=== PATIENT | female | born 1995 | race Caucasian/White ===

== ENCOUNTER 2025-04-16 02:42 | Outpatient (CLI) | payer OTHER, SELFPAY ==
--- OUTSIDE RECORDS SUMMARY | 2025-04-13 15:30 | XMS_ITS | Encounter Summary ---
Author Organization [facility] Address [facility] [address] [address] Care Team Providers Care Medicare Biller Name Role Phone Harleen Zepeda JULIETH Primary Care Provider [phone]- [phone] Reason for Visit * Reason Comments Routine Visit Encounter Details Date Type Department Care Team (Late st Contact Info) Description 04/13/2025 2:30 PM MDT ROUTINE [facility] [place] [address] [place] [address] Balaji Robles NP [address] [place] [address] Social History Tobacco Use Types Packs/Day Years Used Date Smoking Tobacco: Never Smokeless Tobacco: Never Alcohol Use Standard Drinks/Week Comments Not Currently 0 (1 standard drink = 0.6 oz pur e alcohol) ocassional Melrude Depression Scale Answer Date Recorded Melrude Depression Scale Total 21 04/13/2025 The thought of harming myself has occurred to me . 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 Not on file Not on file Not on file documented as of this encounter Last Filed Vital Signs Vital Sign Reading Time Taken Comments Blood Pressure 110/70 04/13/2025 2:28 PM MDT Pulse - - Temperature - - Respiratory Rate - - Oxygen Saturation - - Inhaled Oxygen Concentration - - Weight 85.5 kg (188 lb 6.4 oz) 04/13/2025 2:28 P M MDT Height - - Body Mass Index 32.36 01/07/2025 8:02 AM MDT documented in this encounter Plan of Treatment Upcoming Encounters Date Type Department Care Team (Late st Contact Info) Description 04/29/2025 11:15 AM MDT ROUTINE [address] [place] [address] Kendra Calles MD [address] [place] [address] [address] [place] [address] 06/29/2025 11:00 AM MDT Initial Visit [address] [place] [address] Kendra Calles MD [address] [place] [address] [address] [place] [address] Stacy Grant documented as of this encounter Procedures Procedure Name Priority Date/Time Associated Diagnosis Comments CHLAMYDIA/GC PANEL Routine 04/13/2025 3: 09 PM MDT Screening examination for STD (sexually transmitted disease) TRICHOMONAS GENPROBE Routine 04/13/2025 3:09 PM MDT Screening examination for STD (sexually transmitted disease) documented in this encounter Results * (ABNORMAL) Thyroid Stimulating Hormone (TSH) - Reflexive (04/13/2025 3:32 PM MDT) TSH 0.384(L) 0.470 - 4.680 mIU/L 04/13/2025 6:33 PM MDT [facility] Blood BLOOD SPECIMEN / Unknown Venipuncture / Unknown 04/13/2025 3:32 PM MDT 04/13/2025 3:32 PM MDT Narrative [facility] - 04/13/2025 6:33 PM MDT This test can be affected by high dose biotin supplements. It is recommended that patients abstain from the use of Biotin-containing medicinals for 24 hours prior to specimen collection if interference is or may be suspected. Balaji Robles LAB BLOOD ORDERABLES Final Resul t Performing Organization Address [facility] Co de Phone Number [facility] [address] [place] [address], [facility] [phone] * HIV 1/2 Antibody (04/13/2025 3:32 PM MDT) HIV 1/2 Antibody Quant 0.21 s/c 04/13/2025 7:45 PM MDT [facility] HIV1/2 Antibody Screen Negative Negative 04/13/2025 7:45 PM MDT [facility] Comment:Negative Result: HIV antigen and antibodies are not detected. If early infection is suspected, consider repeat testing in 4-6 weeks. Blood BLOOD SPECIMEN / Unknown Venipuncture / Unknown 04/13/2025 3:32 PM MDT 04/13/2025 3:32 PM MDT Balaji [facility] LAB BLOOD ORDERABLES Final Resul t Performing Organization Address [facility] de Phone Number [facility] [address] [place] [address], [facility] [phone] * Hepatitis B Surface Antigen (04/13/2025 3:32 PM MDT) Hepatitis B Surface Antigen Quant 0.09 S/CO 04/13/2025 6:33 PM MDT [facility] Comment:Negative Hepatitis B Surface Antigen Negative Negative 04/13/2025 6:33 PM MDT [facility] Comment:HBsAg results should be used and interepreted in the context of the overall clinical picture. A negative or false reactive test result does not exclude the possibility of exposure to or infection with hepatitis B virus. Levels of HBsAg may be undetectable both in early infection and late after infection. In rare cases HBsAg tests do not detect certain HBV mutant strains. Blood BLOOD SPECIMEN / Unknown Venipuncture / Unknown 04/13/2025 3:32 PM MDT 04/13/2025 3:32 PM MDT Balaji Robles ELECTRONICS ENGINEER LAB BLOOD ORDERABLES Final Resul t Performing Organization Address [facility] Co de Phone Number [facility] [address] [place], [place] [address], [facility] [phone] * Hepatitis C Virus Antibody (04/13/2025 3:32 PM MDT) Hepatitis C Virus Antibodies Quant 0.01 S/CO 04/13/2025 6:50 PM MDT [facility] Comment:Negative Hepatitis C Virus Antibodies Negative Negative 04/13/2025 6:50 PM MDT [facility] Comment:A negative test resu lt does not exclude the possibility of exposure to or infection with HCV. HCV Antibodies may be undetectable in some stages of the infection and in some clinical conditions. Blood BLOOD SPECIMEN / Unknown Venipuncture / Unknown 04/13/2025 3:32 PM MDT 04/13/2025 3:32 PM MDT Balaji Robles NP LAB BLOOD ORDERABLES Final Resul t Performing Organization Address [facility] de Phone Number [facility] [address] [place] [address], [facility] [phone] * Trichomonas Genprobe (04/13/2025 3:09 PM MDT) Trichomonas vaginalis Amplification Negative Negative 04/14/2025 2:39 PM MDT [facility] Swab VAGINAL STRUCTURE / Unknown 04/13/2025 3:09 PM MDT 04/13/2025 5:12 PM MDT Narrative [facility] - 04/14/2025 2:39 PM MDT Performed by amplified RNA us Balaji Robles ELECTRONICS ENGINEER BODY FLUIDS AND STOOLS ORDERABLE S Final Result Performing Organization Address City/[facility] Co de Phone Number [facility] [address] [place] [address] [phone] * Chlamydia/GC Panel (04/13/2025 3:09 PM MDT) Chlamydia trachomatis Amplification Negative Negative 04/13/2025 10:16 PM MDT [facility] Neisseria gonorrhoeae Amplification Negative Negative 04/13/2025 10:16 PM MDT [facility] Swab VAGINAL STRUCTURE / Unknown 04/13/2025 3:09 PM MDT 04/13/2025 5:12 PM MDT Narrative [facility] - 04/13/2025 10:16 PM MDT Performed by amplified RNA us Balaji Robles ELECTRONICS ENGINEER BODY FLUIDS AND STOOLS ORDERABLE S Final Result [facility] [address] [place] [address] [phone] documented in this encounter Visit Diagnoses Diagnosis Screening examination for STD (sexually transmitted disease)- Primary Screening examination for venereal disease Hypothyroidism, unspecified type Abnormal TSH Other abnormal clinical finding documented in this encounter Care Teams Medicare Biller Relationship Specialty Start Date End Date Harleen Zepeda FNP [address] [place] [facility] PCP - General Nurse Practitioner 06/23/24 documented as of this encounter
--- OUTSIDE RECORDS SUMMARY | 2025-04-13 16:30 | XMS_ITS | Encounter Summary ---
Author Organization [facility] Address [address], [place] [address] Care Team Providers Care Shake Table Operator Name Role Phone Harleen Zepeda JULIETH Primary Care Provider [phone]- [phone] Encounter Details Date Type Department Care Team (Late st Contact Info) Description 04/13/2025 3:30 PM MDT Lab Only [facility] Acute [facility] Lab [facility] [address] [address] Encounter for screening of mother (HC CODE); Screening examination for STD (sexually transmitted disease); Hypothyroidism, unspecified type Social History Tobacco Use Types Packs/Day Years Used Date Smoking Tobacco: Never Smokeless Tobacco: Never Alcohol Use Standard Drinks/Week Comments Not Currently 0 (1 standard drink = 0.6 oz pur e alcohol) ocassional Mcrae Depression Scale Answer Date Recorded Mcrae Depression Scale Total 21 04/13/2025 The thought [...] 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 [place] [address] Kendra Calles MD [address] [place] [address] [place] [address] Stacy Grant Scheduled Orders Name Type Priority Associated Diagnoses Orde r Schedule Antibody Screen Blood Bank Routine Encounter for screening of mother (HC CODE) Ordered: 04/13/2025 CBC No Auto Diff Lab Routine Encounter for screening of mother (HC CODE) Ordered: 04/13/2025 documented as of this encounter Procedures Procedure Name Priority Date/Time Associated Diagnosis Comments THYROID STIMULATING HORMONE REFLEXIVE Routine 04/13/2025 3:32 PM MDT Hypothyroidism, unspecified type RAPID PLASMA REAGIN ANTIBODY - SOUTH ONLY Routine 04/13/2025 3:32 PM MDT Encounter for screening of mother (HC CODE) HEPATITIS C VIRUS ANTIBODY Routine 04/13/2025 3:32 PM MDT Screening examination for STD (sexually transmitted disease) HIV 1/2 ANTIBODY Routine 04/13/2025 3:32 PM MDT Screening examination for STD (sexually transmitted disease) HEPATITIS B SURFACE ANTIGEN Routine 04/13/2025 3:32 PM MDT Screening examination for STD (sexually transmitted disease) T4 (THYROXINE) FREE Routine 04/13/2025 3 :32 PM MDT Hypothyroidism, unspecified type documented in this encounter Results * T4 Free (Thyroxine) (04/13/2025 3:32 PM MDT) Pathologist [facility] T4 Free 1.07 0.78 - 2.19 ng/dL 04/13/2025 6:58 PM MDT [facility] Blood BLOOD SPECIMEN / Unknown Venipuncture / Unknown 04/13/2025 3:32 PM MDT 04/13/2025 3:32 PM MDT Balaji Robles LAB BLOOD ORDERABLES Final Resul t Performing Organization Address City/[facility] Co de Phone Number [facility] [address] [place] [address], [facility] [phone] * (ABNORMAL) Thyroid Stimulating Hormone (TSH) - Reflexive (04/13/2025 3:32 PM MDT) Pathologist [facility] TSH 0.384(L) 0.470 - 4.680 mIU/L 04/13/2025 6:33 PM MDT [facility] Blood BLOOD SPECIMEN / Unknown Venipuncture / Unknown 04/13/2025 3:32 PM MDT 04/13/2025 3:32 PM MDT Narrative [facility] - 04/13/2025 6:33 PM MDT This test can be affected by high dose biotin supplements. It is recommended that patients abstain from the use of Biotin-containing medicinals for 24 hours prior to specimen collection if interference is or may be suspected. Balaji Robles NP LAB BLOOD ORDERABLES Final Resul t Performing Organization Address City/[facility] Co de Phone Number [facility] [address] [place], [place] [address] [phone] * HIV 1/2 Antibody (04/13/2025 3:32 PM MDT) Pathologist [facility] HIV 1/2 Antibody Quant 0.21 s/c 04/13/2025 7:45 PM MDT [facility] HIV1/2 Antibody Screen Negative Negative 04/13/2025 7:45 PM MDT [facility] Comment:Negative Result: HIV antigen and antibodies are not detected. If early infection is suspected, consider repeat testing in 4-6 weeks. Blood BLOOD SPECIMEN / Unknown Venipuncture / Unknown 04/13/2025 3:32 PM MDT 04/13/2025 3:32 PM MDT Balaji Robles LAB BLOOD ORDERABLES Final Resul t Performing Organization Address [facility] de Phone Number [facility] [address] [place], [place] [address], [facility] [phone] * Hepatitis B Surface Antigen (04/13/2025 3:32 PM MDT) Hepatitis B Surface Antigen Quant 0.09 S/CO 04/13/2025 6:33 PM MDT [facility] Comment:Negative Hepatitis B Surface Antigen Negative Negative 04/13/2025 6:33 PM MDT [facility] Comment:HBsAg results should be [...] MDT 04/13/2025 3:32 PM MDT Balaji Robles LAB BLOOD ORDERABLES Final Resul t Performing Organization Address [facility] Phone Number [facility] [address] [place], [place] [address], [facility] [phone] * Hepatitis C Virus Antibody (04/13/2025 3:32 PM MDT) Hepatitis C Virus Antibodies Quant 0.01 S/CO 04/13/2025 6:50 PM MDT [facility] Comment:Negative Hepatitis C Virus Antibodies Negative Negative 04/13/2025 6:50 PM MDT [facility] Comment:A negative test resu lt does not exclude the possibility of exposure to or infection with HCV. HCV Antibodies may be undetectable in some stages of the infection and in some clinical conditions. Blood BLOOD SPECIMEN / Unknown Venipuncture / Unknown 04/13/2025 3:32 PM MDT 04/13/2025 3:32 PM MDT us Balaji Robles NP LAB BLOOD ORDERABLES Final Resul t Performing Organization Address City/[facility]/ZIP Co de Phone Number [facility] [address] [place] [address] [address], [facility] [phone] * Rapid Plasma Reagin Antibody (RPR) - Inhouse Testing (04/13/2025 3:32 PM MDT) RPR Negative Negative 04/14/2025 11:32 AM MDT [facility] Blood BLOOD SPECIMEN / Unknown Venipuncture / Unknown 04/13/2025 3:32 PM MDT 04/13/2025 3:32 PM MDT us Kendra Calles MD LAB BLOOD ORDERABLES Fin al Result Performing Organization Address City/[facility] Co de Phone Number [facility] [address] [place], [place] [address], [facility] [phone] documented in this encounter Visit Diagnoses Diagnosis Encounter for screening of mother (HC CODE) Unspecified screening Screening examination for STD (sexually transmitted disease) Screening examination for venereal disease Hypothyroidism, unspecified type documented in this encounter Care Teams Shake Table Operator Relationship Specialty Start Date End Date Harleen Zepeda FNP [address] [place] [address] PCP - General Nurse Practitioner 06/23/24 documented as of this encounter
[2025-04-16] VITALS (39 sets, daily range): BP systolic 111–126; BP diastolic 56–83; PULSE 55–85; RESP 16; TEMP 36.6; O2SAT 93–100; BMI 32.8
--- OUTSIDE RECORDS SUMMARY | 2025-04-17 03:15 | XMS_ITS | Clinical Summary ---
Author Organization [facility] and [facility] Address [address] [place] [address] Care Team Providers Care Systems Integration Analyst Name Role Phone Harleen Zepeda JULIETH Primary Care Provider [phone] Allergies Active Allergy Reactions Criticality Noted Date Comments Adhesive Tape-Silicones BLISTERING Low 07/17/2019 Medications albuterol HFA 90 mcg/actuation inhaler Inhale 2 puffs into the lungs every 6 hours as needed for Acute Asthma Attack. 8.5 g 4 07/11/20 24 Active vit no.124/iron/folic ( VITAMIN PO) Take 1 tablet by mouth daily. Active cyanocobalamin, vitamin B-12, 1,000 mcg tablet Take 1 tablet by mouth daily. Active ondansetron (ZOFRAN-ODT) 4 mg disintegrating tablet Take 1 tablet by mouth daily as needed for Nausea or Vomiting for Excessive Vomiting in . Dissolve on top of the tongue. May use 1-2 tabs every 6 hours as needed 20 tablet 1 11/27/19 25 Active hydrOXYzine HCL (ATARAX) 50 mg tablet Take 1 tablet by mouth nightly at bedtime for anxiety. 30 tablet 4 12/26/19 25 Active dextroamphetamine -amphetamine (ADDERALL XR) 10 mg 24 hr capsule Take 1 capsule by mouth daily for Attention-Defici t Hyperactivity Disorder. 30 capsule 01/03/20 25 Active CALCIUM-VITAMIN D3 PO Take 3 tablets by mouth daily. 500mg each Active ferrous sulfate (IRON) 325 mg (65 mg iron) tablet Take 1 tablet by mouth every other day for iron deficiency anemia. 90 tablet 1 01/09/20 25 Active acetaminophen (TYLENOL) 500 mg tablet Take 2 tablets by mouth every 6 hours as needed for Pain for Pain. 30 tablet 01/09/20 25 Active senna-docusate (SENNA PLUS) 8.6-50 mg tablet Take 1 tablet by mouth 2 times daily as needed for constipation. 30 tablet 01/09/20 25 Active calcium citrate-vitamin D3 315 mg-6.25 mcg (250 unit) per tablet 2 tab, Oral, TID, # 540 tab, 3 Refill(s), Pharmacy: [id number], 163, 12/03/23 15:38:00 MDT, Height/Length Measured, cm, 91.9, 09/14/23 8:40:00 MST, Weight Dosing, kg 12/03/19 24 Active blood-glucose meter Kit kit Take 1 each as instructed as needed (QID and PRN) for . Test blood sugar fasting and after each meal 1 each 04/01/20 25 Active propranoloL (INDERAL) 10 mg tablet Take 1 tablet by mouth daily as needed (anxiety) for anxiety. 90 tablet 1 04/01/20 25 Active escitalopram oxalate (LEXAPRO) 10 mg tablet Take 1 tablet by mouth daily for Anxiety with Depression. 30 tablet 1 04/13/20 25 Active propranoloL (INDERAL) 10 mg tablet Take 1 tablet by mouth daily as needed (anxiety). 07/19/20 23 2024 Discontinu ed(D/Cs Rx at Pharm - Reorder) metoCLOPramide (REGLAN) 5 mg tablet Take 1 tablet by mouth 4 times daily (with meals and nightly) for Nausea. 120 tablet 12/08/19 25 2024 Discontinu ed(*Med Hx: Pt reports therapy complete - does not d/c Rx at pharmacy) Active Problems Problem Noted Date Diagnosed Date Subclinical hypothyroidism 03/06/2025 Overview (04/16/2025): TSH 0.409, T4 WNL on 02/05. TSH 0.196, T4, T3, TSI WNL on 03/02 TSH 0.384, T4 1.07 (WNL) on 04/13 Encounter for repeat ultraso und of pyelectasis in [place] , antepartum 02/25/2025 Overview (02/25/2025): Follow up at 32 weeks with US Benign cyst of breast, left 02/05/2025 Overview (02/05/2025): US done 05/2019 Eczema, dyshidrotic 02/05/2025 Left knee pain 02/05/2025 Chronic daily headache 02/05/2025 Chronic diarrhea 02/05/2025 Chronic post-traumatic stress disorder (PTSD) Gastroesophageal reflux disease 02/05/2025 Hyperlipidemia 02/05/2025 Left radial head fracture 02/05/2025 Need for rhogam due to Rh negative mother 2024 Obstructive sleep apnea 02/05/2025 Skin pruritus 02/05/2025 History of labor, current 01/16 Cervical cerclage suture present 01/21/2025 Anemia during in second trimester 12/17 Overview (03/19/2025): Hg 9.0 at NOB. Taking oral iron QOD. Plan repeat in 4-6 weeks Hg 9.7 on 03/02. IV iron ordered. Plan re-evaluation with PNII labs Rh negative state in antepartum period Overview (01/12/2025): Fetus Rh negative via [place]. Plan Rhogam at 28 wks and at delivery Prior loss in second trimester, antepa rtum 01/08/2025 Previous delivery affecting 0 01/05/2025 Overview (01/05/2025): Wants RLTCS History of prior with IUGR Overview (01/05/2025): Plan growth US at 32 and 36 weeks History of cerclage, currently 12/23/19 25 Overview (01/05/2025): Scheduled for cerclage placement 01/08/25 Mild intermittent asthma 12/16/2024 11/17/2024 Overview (01/05/2025): Recommended LDA- BMI >30, hx of IUGR, hx of delivery H/O gastric bypass 11/17/2024 Overview (01/21/2025): Avoid 1 hour glucola testing. Will plan for fingersticks QID. Assessment & Plan (12/16/2024 2:45 PM MDT): Continue vitamin patches. Elevated blood pressure affe cting in first trimester, antepartum 11/17/2024 Assessment & Plan (01/05/2025 6:28 AM MDT): BP WNL today. Baseline HTN labs collected Assessment & Plan (12/16/2024 2:44 PM MDT): BP wnl today Still plan on baseline pre-E labs with NOB visit Adult ADHD 06/23/2024 Overview (07/04/2024): Will change Vyvanse to Adderall. 20 mg Adderall in the morning, 10 mg in afternoon if needed. Assessment & Plan (07/04/2024 4:51 PM MDT): Generalized anxiety disorder 06/23/2024 Assessment & Plan (04/16/2025 1:30 PM MDT): >>ASSESSMENT AND PLAN FOR ANXIETY WRITTEN ON 01/05/2025 6:34 AM BY BALAJI ROBLES NP Discussed R/B/A's of adderall in . Pt states she may restart at 10 mg daily. Rx sent Agrees to see TC for mood management. Initial intake packet given PCOS (polycystic ovarian syndrome) 09/15/2016 Estimated Date of Delivery Comme nts Yes 07/14/2025 Based on last me nstrual period of 10/07/2024 (Within Days) Resolved Problems Problem Noted Date Diagnosed Date Resolved Date Iron deficiency anemia 03/06/202503/06 Overview (03/06/2025): Hg 9.7 on 03/02. Oral iron prescribed Cellulitis of right foot due to methicillin-resistant Staphylococcus aureus 02/05/2025 04/16/2025 COVID-19 02/05/2025 04/16/2025 Lab test positive for detect ion of COVID-19 virus 02/05/2025 04/16/2025 Vaginal bleeding in 02/05/2025 04/13/2025 History of section 02/05/2025 04/13/2025 14 weeks gestation of 01/08/2025 04/13/2025 Uncertain dates, antepartum, first trimester 04/13/2025 Assessment & Plan (12/16/2024 2:44 PM MDT): with inconclusive viability 11/17/2024 01/05/2025 Morbid obesity with BMI of 45.0-49.9, adult 08/06/2020 04/16/2025 Overview (02/05/2025): Problem added by Discern Expert Encounters Date Type Department Care Team Description 04/15/2025 Results Follow-Up [address] [place], [place] [address] Balaji Robles NP 04/13/2025 3:30 PM MDT Lab Only [facility] [place] [address] Encounter for screening of mother (HC CODE); Screening examination for STD (sexually transmitted disease); Hypothyroidism, unspecified type 04/13/2025 2:30 PM MDT ROUTINE [address] [place] [phone] Balaji Robles NP 04/13/[address] [place] [address] Balaji Robles NP 04/01/2025 11:15 AM MDT ROUTINE [address] [place] [id number] Kendra Calles MD 03/27/2025 11:30 AM MDT Treatment [facility] [address] [facility] [place] [address] Denae Laird, RN Anemia during in second trimester (HC CODE) (Primary Dx) 03/27/2025 Orders Only [facility] [address] [facility] [place] [address] Denae Laird, KISHORE 03/26/2025 Orders Only [facility] [address] [place] [address] [place] [address] Denae Laird, KISHORE 03/19/2025 Orders Only [address] [place] [phone] Balaji Robles NP 03/13/2025 1:20 PM MDT Lab Only [facility] [address] [place] [address] [place] [address] Encounter for screening of mother (HC CODE); screening encounter (HC CODE) 03/06/2025 Orders Only [facility] [address] [place] [address] [place] [address] Marnie Arias screening encounter (HC CODE) 03/06/2025 Orders Only [address] [place] [phone] Balaji Robles NP Anemia during in second trimester (HC CODE) (Primary Dx) 03/06/2025 Orders Only [facility] [address] [place] [address] [place] [phone] Marnie Arias screening encounter (HC CODE) 03/06/2025 Orders Only [address] [place] [address] Balaji Rolbes NP screening encounter (HC CODE) (Primary Dx) 03/02/2025 3:30 PM MDT Lab Only [facility] [address] [place] [address] screening encounter (HC CODE); BMI 33.0-33.9,adult 03/02/2025 Lab Requisition [facility] [address] [place] [phone] Berry Schroeder MD Encounter for other specified special examinations; Encounter for other specified special examinations 02/25/2025 10:30 AM MDT ROUTINE [address] [place] [address] Kendra Calles MD 02/25/2025 10:00 AM MDT Ancillary Procedure [address] [place] [address] 20 weeks gestation of (HC CODE); Encounter for screening of mother (HC CODE) 02/06/[address] [place] [address] Balaji Robles NP 02/06/2025 Results Follow-Up [address] [place] [address] Balaji Robles NP screening encounter (HC CODE) (Primary Dx) 02/05/2025 10:45 AM MDT ROUTINE [address] [place] [address] Balaji Robles NP 02/04/[address] [place] [address] Kendra Calles MD 01/30/[address] [place] [address] Glenis Trujillo PA-C 01/21/2025 11:45 AM MDT ROUTINE [facility] [address] [place] [address] Kendra Calles MD 01/21/2025 11:15 AM MDT Ancillary Procedure [facility] [address] [facility] [address] [place] [address] Cervical cerclage suture present in second trimester (HC CODE); 16 weeks gestation of (HC CODE) 01/15/[address] [place] [phone] [facility] [address] [place] [address] Asked, Nopcp from Last 3 Months Immunizations Immunization Administration Dates Next Due Hep B, adult 04/12/2023,03/15/2023 Influenza, injectable, MDCK, preservative free (6 mos+) 06/27/2021,07/05/2020 Influenza, seasonal, injecta ble, preservative free 07/04/2024 MMR 03/15/2023,08/06/2020 Tdap 05/16/2021,06/09/2020,07/18/2019 varicella (VARIVAX) 04/12/2023,03/15/2023 Family History Medical History Relation Comments Diabetes Father High blood pressure Father Heart disease Maternal Grandfather Hypertension Maternal Grandfather Hypertension Maternal Grandmother ADHD Mother Depression Mother Relation Status Comments Father Maternal Grandfather Maternal Grandmother Mother Social History Tobacco Use Types Packs/Day Years Used Date Smoking Tobacco: Never Smokeless Tobacco: Never Tobacco Cessation:Counseling Given: Not Answered Alcohol Use Standard Drinks/Week Comments Not Currently 0 (1 standard drink = 0.6 oz pur e alcohol) ocassional [place] Depression Scale Answer Date Recorded [place] Depression Scale Total 21 04/13/2025 The thought [...] 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 Not on file Not on file Last Filed Vital Signs Vital Sign Reading Time Taken Comments Blood Pressure 110/70 04/13/2025 2:28 PM MDT Pulse 73 03/27/2025 2:07 PM MDT Temperature 36.4 C (97.5 F) 03/27/2025 2:07 PM MDT Respiratory Rate 18 03/27/2025 2:07 PM MDT Oxygen Saturation 98% 03/27/2025 2:07 PM MDT Inhaled Oxygen Concentration - - Weight 85.5 kg (188 lb 6.4 oz) 04/13/2025 2:28 P M MDT Height 162.5 cm (5' 3.98 ) 01/07/2025 8:02 AM MD T Body Mass Index 32.36 01/07/2025 8:02 AM MDT Plan of Treatment Upcoming Encounters Date Type Department Care Team (Late st Contact Info) Description 04/29/2025 11:15 AM MDT ROUTINE [facility]'[address] [facility] [address] [place] [phone] Kendra Calles MD [address] [place] [address] [address] [facility] [address] [place] [address] 06/29/2025 11:00 AM MDT Initial Visit [facility]'[place] [id number] [place] [phone] Kendra Calles MD [address] [place] [address] [address] [place] [address] St[facility] Health Maintenance Due Date Last Done Comments Medical Durable Power of Att orney (MDPOA) 2013 Pneumonia Vaccine (1 of 2 - PCV) 2014 SARS-COV2 (COVID-19) Vaccine ( - season) 2024 Pre-Diabetes A1C Monitoring 11/05/2025 11/05/2024 Thyroid Surveillance 04/13/2026 04/13/2025, 03/13/2025, 03/02/2025, Additional history exists Cervical Cancer Screening (P ap Smear) 09/22/2027 09/22/2024 Tdap/Td Vaccine (4 - Td or Tdap) 05/16/2031 05/16/2021, 06/09/2020, 07/18/2019 Hepatitis B Vaccine Adult Completed 2022, 04/12/2023, 03/15/2023 HIV Screening (Ages 15-65/One-time) Completed 04/13/2025, 03/02/2025, 02/05/2025 Hepatitis C Antibody Screening Completed 0 04/13/2025, 03/02/2025, 02/05/2025 Syphilis Screening Completed 04/13/2025, 0 03/02/2025, 02/05/2025 Procedures Procedure Name Priority Date/Time Associated Diagnosis Comments T4 (THYROXINE) FREE Routine 04/13/2025 3 :32 PM MDT Hypothyroidism, unspecified type THYROID STIMULATING HORMONE REFLEXIVE Routine 04/13/2025 3:32 PM MDT Hypothyroidism, unspecified type HIV 1/2 ANTIBODY Routine 04/13/2025 3:32 PM MDT Screening examination for STD (sexually transmitted disease) HEPATITIS B SURFACE ANTIGEN Routine 04/13/2025 3:32 PM MDT Screening examination for STD (sexually transmitted disease) HEPATITIS C VIRUS ANTIBODY Routine 04/13/2025 3:32 PM MDT Screening examination for STD (sexually transmitted disease) RAPID PLASMA REAGIN ANTIBODY - SOUTH ONLY Routine 04/13/2025 3:32 PM MDT Encounter for screening of mother (HC CODE) TRICHOMONAS GENPROBE Routine 04/13/2025 3:09 PM MDT Screening examination for STD (sexually transmitted disease) CHLAMYDIA/GC PANEL Routine 04/13/2025 3: 09 PM MDT Screening examination for STD (sexually transmitted disease) THYROID STIMULATING IMMUNOGLOB Routine 03/13/2025 1:18 PM MDT screening encounter (HC CODE) TSH ULTRASENSITIVE Routine 03/13/2025 1: 18 PM MDT Encounter for screening of mother (HC CODE) TYPE AND SCREEN (GEL) Routine 03/02/2025 3:26 PM MDT screening encounter (HC CODE) FREE T3 Routine 03/02/2025 3:26 PM MDT screening encounter (HC CODE) T4 (THYROXINE) FREE Routine 03/02/2025 3 :26 PM MDT screening encounter (HC CODE) LAB USE ONLY - SMEAR REVIEW Routine 03/02/2025 3:26 PM MDT screening encounter (HC CODE) CBC WITH MANUAL DIFF IF AUTO FAILS (PERFORMABLE) Routine 03/02/2025 3:26 PM MDT screening encounter (HC CODE) TSH ULTRASENSITIVE Routine 03/02/2025 3: 26 PM MDT BMI 33.0-33.9,adult screening encounter (HC CODE) HIV 1/2 ANTIBODY Routine 03/02/2025 3:26 PM MDT screening encounter (HC CODE) COMPREHENSIVE METABOLIC PANEL Routine 03/02/2025 3:26 PM MDT BMI 33.0-33.9,adult screening encounter (HC CODE) RAPID PLASMA REAGIN ANTIBODY - SOUTH ONLY Routine 03/02/2025 3:26 PM MDT screening encounter (HC CODE) HEPATITIS B SURFACE ANTIGEN Routine 03/02/2025 3:26 PM MDT screening encounter (HC CODE) RUBELLA IGG ANTIBODY Routine 03/02/2025 3:26 PM MDT screening encounter (HC CODE) CBC WITH MANUAL DIFF IF AUTO FAILS (ORDERABLE) Routine 03/02/2025 3:26 PM MDT screening encounter (HC CODE) HEPATITIS C VIRUS ANTIBODY Routine 03/02/2025 3:26 PM MDT screening encounter (HC CODE) VARICELLA ZOSTER IGG ANTIBODY Routine 03/02/2025 3:26 PM MDT screening encounter (HC CODE) QFT-TB PLUS (CLIENT INCUBATED) Routine 03/02/2025 3:24 PM MDT Encounter for other specified special examinations Encounter for other specified special examinations GEN OBGYN ULTRASOUND Routine 02/25/2025 10:55 AM MDT 20 weeks gestation of (HC CODE) Encounter for screening of mother (HC CODE) T4 (THYROXINE) FREE Add-on 02/05/2025 1 1:25 AM MDT screening encounter (HC CODE) VARICELLA ZOSTER IGG ANTIBODY Routine 02/05/2025 11:25 AM MDT screening encounter (HC CODE) HEPATITIS C VIRUS ANTIBODY Routine 02/05/2025 11:25 AM MDT screening encounter (HC CODE) RUBELLA IGG ANTIBODY Routine 02/05/2025 11:25 AM MDT screening encounter (HC CODE) HEPATITIS B SURFACE ANTIGEN Routine 02/05/2025 11:25 AM MDT screening encounter (HC CODE) RAPID PLASMA REAGIN ANTIBODY - SOUTH ONLY Routine 02/05/2025 11:25 AM MDT screening encounter (HC CODE) HIV 1/2 ANTIBODY Routine 02/05/2025 11:2 5 AM MDT screening encounter (HC CODE) TSH ULTRASENSITIVE Routine 02/05/2025 11 :25 AM MDT screening encounter (HC CODE) GEN OBGYN ULTRASOUND Routine 01/21/2025 11:44 AM MDT Cervical cerclage suture present in second trimester (HC CODE) 16 weeks gestation of (HC CODE) HEMOGLOBIN A1C Routine 11/05/2024 5:51 PM MST Encounter for well woman exam with routine gynecological exam History of Hernando-en-Y gastric bypass BKR FIELD REPORTER CYTOLOGY Routine 09/22/2024 2:39 PM MST Encounter for well woman exam with routine gynecological exam from Last 3 Months or Most Recently Relevant to Health Maintenance Results * (ABNORMAL) Thyroid Stimulating Hormone (TSH) - Reflexive (04/13/2025 3:32 PM MDT) TSH 0.384(L) 0.470 - 4.680 mIU/L 04/13/2025 6:33 PM MDT [facility] Blood BLOOD SPECIMEN / Unknown Venipuncture / Unknown 04/13/2025 3:32 PM MDT 04/13/2025 3:32 PM MDT Narrative [facility] - 04/13/2025 6:33 PM MDT This test can be affected by high dose biotin supplements. It is recommended that patients abstain from the use of Biotin-containing medicinals for 24 hours prior to specimen collection if interference is or may be suspected. us Balaji Robles [employer] LAB BLOOD ORDERABLES Final Resul t [facility] [address] [place] [address], [facility] [phone] * Rapid Plasma Reagin Antibody (RPR) - Inhouse Testing (04/13/2025 3:32 PM MDT) RPR Negative Negative 04/14/2025 11:32 AM MDT [facility] Blood BLOOD SPECIMEN / Unknown Venipuncture / Unknown 04/13/2025 3:32 PM MDT 04/13/2025 3:32 PM MDT us Kendra Calles MD LAB BLOOD ORDERABLES Fin al Result Performing Organization Address City/[facility]/ZIP Co de Phone Number [facility] [address] [place] [address], [facility] [phone] * Hepatitis C Virus Antibody (04/13/2025 3:32 PM MDT) Hepatitis C Virus Antibodies Quant 0.01 S/CO 04/13/2025 6:50 PM MDT [facility] Comment:Negative Hepatitis C Virus Antibodies Negative Negative 04/13/2025 6:50 PM MDT [facility] Comment:A negative test resu lt does not exclude the possibility of exposure to or infection with HCV. HCV Antibodies may be undetectable in some stages of the infection and in some clinical conditions. Blood BLOOD SPECIMEN / Unknown Venipuncture / Unknown 04/13/2025 3:32 PM MDT 04/13/2025 3:32 PM MDT us Balaji Robles NP LAB BLOOD ORDERABLES Final Resul t Performing Organization Address [facility] Co de Phone Number [facility] [address] [place], [place] [address], [facility] [phone] * HIV 1/2 Antibody (04/13/2025 3:32 PM MDT) HIV 1/2 Antibody Quant 0.21 s/c 04/13/2025 7:45 PM MDT [facility] HIV1/2 Antibody Screen Negative Negative 04/13/2025 7:45 PM MDT [facility] Comment:Negative Result: HIV antigen and antibodies are not detected. If early infection is suspected, consider repeat testing in 4-6 weeks. Blood BLOOD SPECIMEN / Unknown Venipuncture / Unknown 04/13/2025 3:32 PM MDT 04/13/2025 3:32 PM MDT us Balaji Robles NP LAB BLOOD ORDERABLES Final Resul t [facility] [address] [place], [place] [address], [facility] [phone] * Hepatitis B Surface Antigen (04/13/2025 3:32 PM MDT) [facility] Hepatitis B Surface Antigen Quant 0.09 S/CO 04/13/2025 6:33 PM MDT [facility] Comment:Negative Hepatitis B Surface Antigen Negative Negative 04/13/2025 6:33 PM MDT [facility] Comment:HBsAg results should be used and [...] Address City/[facility]/ZIP Co de Phone Number [facility] [address] [place], [place] [address], [facility] [phone] * T4 Free (Thyroxine) (04/13/2025 3:32 PM MDT) [facility] T4 Free 1.07 0.78 - 2.19 ng/dL 04/13/2025 6:58 PM MDT [facility] Blood BLOOD SPECIMEN / Unknown Venipuncture / Unknown 04/13/2025 3:32 PM MDT 04/13/2025 3:32 PM MDT Balaji Robles [employer] LAB BLOOD ORDERABLES Final Resul t [facility] [address] [place], [place] [address], [facility] [phone] * Chlamydia/GC Panel (04/13/2025 3:09 PM MDT) [facility] Chlamydia trachomatis Amplification Negative Negative 04/13/2025 10:16 PM MDT [facility] Neisseria gonorrhoeae Amplification Negative Negative 04/13/2025 10:16 PM MDT [facility] Swab VAGINAL STRUCTURE / Unknown 04/13/2025 3:09 PM MDT 04/13/2025 5:12 PM MDT Narrative [facility] - 04/13/2025 10:16 PM MDT Performed by amplified RNA Balaji Robles [employer]ER BODY FLUIDS AND STOOLS ORDERABLE S Final Result Performing Organization Address City/[facility]/ZIP Co de Phone Number [facility] [address] [place], [place] [address], [facility] [phone] * Trichomonas Genprobe (04/13/2025 3:09 PM MDT) Trichomonas vaginalis Amplification Negative Negative 04/14/2025 2:39 PM MDT [facility] Swab VAGINAL STRUCTURE / Unknown 04/13/2025 3:09 PM MDT 04/13/2025 5:12 PM MDT Narrative [facility] - 04/14/2025 2:39 PM MDT Performed by amplified RNA Balaji Robles [employer] BODY FLUIDS AND STOOLS ORDERABLE S Final Result Performing Organization Address [facility] Co de Phone Number [facility] [address] [place], [place] [address], [facility] [phone] * Thyroid-Stimulating Immunoglob - [facility] (03/13/2025 1:18 PM MDT) Thyroid Stimulating Immunoglobulin <0.10 0.00 - 0.55 IU/L 03/18/2025 5:37 AM MDT [facility] Blood BLOOD SPECIMEN / Unknown Venipuncture / Unknown 03/13/2025 1:18 PM MDT 03/13/2025 1:19 PM MDT Narrative [facility] - 03/18/2025 5:37 AM MDT Performed at: [facility] [employer] [address] [place] [address] [id number] Cost And Sales Record Supervisor: Jose Miguel Mohamud MD, Phone: [phone] Balaji Robles [employer] LAB BLOOD ORDERABLES Final Resul t Performing Organization Address City/[facility]/ZIP Co de Phone Number [facility] [address] [place] [address] * (ABNORMAL) TSH (03/13/2025 1:18 PM MDT) Pathologist [facility] TSH 0.196(L) 0.470 - 4.680 mIU/L 03/13/2025 2:34 PM MDT [facility] Blood BLOOD SPECIMEN / Unknown Venipuncture / Unknown 03/13/2025 1:18 PM MDT 03/13/2025 1:19 PM MDT Narrative [facility] - 03/13/2025 2:34 PM MDT This test can be affected by high dose biotin supplements. It is recommended that patients abstain from the use of Biotin-containing medicinals for 24 hours prior to specimen collection if interference is or may be suspected. Balaji Robles NP LAB BLOOD ORDERABLES Final Resul t Performing Organization Address [facility] Co de Phone Number [facility] [address] [place] [address] [address], [facility] [phone] * Rapid Plasma Reagin Antibody (03/02/2025 3:26 PM MDT) Pathologist [facility] RPR Negative Negative 03/03/2025 12:24 PM MDT [facility] Blood BLOOD SPECIMEN / Unknown Venipuncture / Unknown 03/02/2025 3:26 PM MDT 03/02/2025 3:27 PM MDT Balaji Robles [employer] LAB BLOOD ORDERABLES Final Resul t Performing Organization Address City/[facility] Co de Phone Number [facility] [address] [place] [address] [address], [facility] [phone] * (ABNORMAL) Smear Review (03/02/2025 3:26 PM MDT) [facility] RBC and Platelet Morphology Evaluated 03/02/2025 3:57 PM MDT [facility] Anisocytosis 1+(A) Not Present 03/02/2025 3:57 PM MET [facility] Microcytes 1+(A) Not Present 03/02/2025 3:57 PM MET [facility] Hypochromasia 1+(A) Not Present 03/02/2025 3:57 PM [facility] Blood BLOOD SPECIMEN / Unknown Venipuncture / Unknown 03/02/2025 3:26 PM MDT 03/02/2025 3:27 PM MDT us Balaji Robles NP LAB BLOOD ORDERABLES Final Resul t [facility] [address] [address], [facility] [phone] * (ABNORMAL) CBC with Auto Differential (03/02/2025 3:26 PM MDT) White Blood Cell Count 11.0(H) 3.6 - 10.8 10*9/L 03/02/2025 3:57 PM [facility] Red Blood Cell Count 4.38 4.20 - 5.40 10*12/L 03/02/2025 3:57 PM [facility] Hemoglobin 9.7(L) 12.0 - 16.0 g/dL 03/02/2025 3:57 PM [facility] Hematocrit 32.3(L) 37.0 - 47.0 % 03/02/2025 3:57 PM [facility] Mean Corpuscular Volume 73.7(L) 81.0 - 99.0 fL 03/02/2025 3:57 PM [facility] Mean Corpuscular Hemoglobin 22.1(L) 26.0 - 33.0 pg 03/02/2025 3:57 PM [facility] Mean Corpuscular Hemoglobin Concentration 30.0(L) 32.0 - 36.0 g/dL 03/02/2025 3:57 PM [facility] Platelet Count 324 130 - 400 10*9/L 03/02/2025 3:57 PM [facility] Red Cell Distribution Width CV 17.6(H) 11.0 - 14.0 % 03/02/2025 3:57 PM [facility] Mean Platelet Volume 10.3 6.4 - 10.4 fL 03/02/2025 3:57 PM MET [facility] Neutrophil Percent 74.8 % 2024 3:57 PM [facility] Lymphocyte Percent 16.0 % 2024 3:57 PM [facility] Monocytes Percent 7.2 % 025 3:57 PM [facility] Eosinophils Percent 1.2 % 03/02/2025 3:57 PM MET [facility] Basophils Percent 0.3 % 025 3:57 PM [facility] Immature Granulocytes Percent 0.5 0 - 0.5 % 03/02/2025 3:57 PM [facility] Neutrophils Absolute 8.3(H) 1.5 - 7.7 10*9/L 03/02/2025 3:57 PM [facility] Lymphocyte Absolute 1.8 1.2 - 4.8 10*9/L 03/02/2025 3:57 PM [facility] Monocytes Absolute 0.8 0.1 - 1.3 10*9/L 03/02/2025 3:57 PM [facility] Eosinophils Absolute 0.1 0.0 - 0.5 10*9/L 03/02/2025 3:57 PM [facility] Basophils Absolute 0.0 0.0 - 0.2 10*9/L 03/02/2025 3:57 PM [facility] Immature Granulocytes Absolute 0.1 0.0 - 0.1 10*9/L 03/02/2025 3:57 PM [facility] NRBC Absolute 0.00 10*9/L 03/02/2025 3:57 PM [facility] Blood BLOOD SPECIMEN / Unknown Venipuncture / Unknown 03/02/2025 3:26 PM MDT 03/02/2025 3:27 PM MDT us Balaji Robles NP LAB BLOOD ORDERABLES Final Resul t [facility] [address] [address], [facility] [phone] * Type and Screen (03/02/2025 3:26 PM MDT) Specimen Expiration 03/05/2025 23:59 03/02/2025 4:31 PM MDT [facility] ABO/Rh Typing O NEGATIVE 03/02/2025 4:31 PM MDT [facility] Antibody Screen Gel NEGATIVE 03/02/2025 4:31 PM MDT [facility] History Check PREVIOUS HISTORY 03/02/2025 4:31 PM MDT [facility] Blood BLOOD SPECIMEN / Unknown Venipuncture / Unknown 03/02/2025 3:26 PM MDT 03/02/2025 3:27 PM MDT Balaji Robles NP BLOOD BANK TEST ORDERABLES Edite d Result - Final Performing Organization Address City/[facility]/ZIP Co de Phone Number [facility] [address] [address], [facility] [phone] * Hepatitis C Virus Antibody (03/02/2025 3:26 PM MDT) Pathologist [facility] Hepatitis C Virus Antibodies Quant 0.01 S/CO 03/02/2025 4:52 PM MDT [facility] Comment:Negative Hepatitis C Virus Antibodies Negative Negative 03/02/2025 4:52 PM MDT [facility] Comment:A negative test resu lt does not exclude the possibility of exposure to or infection with HCV. HCV Antibodies may be undetectable in some stages of the infection and in some clinical conditions. Blood BLOOD SPECIMEN / Unknown Venipuncture / Unknown 03/02/2025 3:26 PM MDT 03/02/2025 3:27 PM MDT us Balaji Robles NP LAB BLOOD ORDERABLES Final Resul t [facility] [address] [address], [facility] [phone] * Rubella IgG Antibody (03/02/2025 3:26 PM MDT) Rubella IgG Antibody Quantitative 10.70 IU/mL 03/05/2025 2:52 PM MDT [facility] Comment:Low Positive Rubella IgG Antibody Interp Low Positive Low Positive, Positive 03/05/2025 2:52 PM MDT [facility] Blood BLOOD SPECIMEN / Unknown Venipuncture / Unknown 03/02/2025 3:26 PM MDT 03/02/2025 3:27 PM MDT Narrative [facility] - 03/05/2025 2:52 PM MDT Reference Range for Rubella: Negative: <=9.99 IU/mL Low Positive: 10.1-14.9 IU/mL Positive: >=15.0 IU/mL A Positive or Low Positive result suggests immunity to Rubella infection. A negative result suggests no immunity to Rubella. Balaji Robles NP LAB BLOOD ORDERABLES Final Resul t Performing Organization Address City/[facility] Co de Phone Number [facility] [address] [address], [facility] [phone] * HIV 1/2 Antibody (03/02/2025 3:26 PM MDT) HIV 1/2 Antibody Quant 0.20 s/c 03/02/2025 5:43 PM MDT [facility] HIV1/2 Antibody Screen Negative Negative 03/02/2025 5:43 PM MDT [facility] Comment:Negative Result: HIV antigen and antibodies are not detected. If early infection is suspected, consider repeat testing in 4-6 weeks. Blood BLOOD SPECIMEN / Unknown Venipuncture / Unknown 03/02/2025 3:26 PM MDT 03/02/2025 3:27 PM MDT Balaji Robles NP LAB BLOOD ORDERABLES Final Resul t [facility] [address] [address], [facility] [phone] * Hepatitis B Surface Antigen (03/02/2025 3:26 PM MDT) Hepatitis B Surface Antigen Quant 0.08 S/CO 03/02/2025 4:36 PM MDT [facility] Comment:Negative Hepatitis B Surface Antigen Negative Negative 03/02/2025 4:36 PM MDT [facility] Comment:HBsAg results should be used and [...] BLOOD SPECIMEN / Unknown Venipuncture / Unknown 03/02/2025 3:26 PM MDT 03/02/2025 3:27 PM MDT Balaji Robles LAB BLOOD ORDERABLES Final Resul t Performing Organization Address City/[facility] Co de Phone Number [facility] [address] [place] [address], [facility] [phone] * Varicella Zoster IgG Antibodies (03/02/2025 3:26 PM MDT) Varicella Zoster IgG Quant 2.69 03/02/2025 4:36 PM MET [facility] Comment: Result Index Values Negative <1.0 Positive >=1.0 Varicella Zoster IgG Positive Positive 03/02/2025 4:36 PM MDT [facility] Blood BLOOD SPECIMEN / Unknown Venipuncture / Unknown 03/02/2025 3:26 PM MDT 03/02/2025 3:27 PM MDT Balaji Robles LAB BLOOD ORDERABLES Final Resul t Performing Organization Address City/[facility] Co de Phone Number [facility] [address] [place] [address], [facility] [phone] * T3 Free (03/02/2025 3:26 PM MDT) Free T3 3.5 2.8 - 5.3 pg/mL 03/06/2025 4:28 PM MDT [facility] Blood BLOOD SPECIMEN / Unknown Venipuncture / Unknown 03/02/2025 3:26 PM MDT 03/06/2025 1:50 PM MDT Balaji Robles [employer] LAB BLOOD ORDERABLES Final Resul t Performing Organization Address City/[facility]/ZIP Co de Phone Number [facility] [address], [place] [address], [facility] [phone] * (ABNORMAL) TSH (03/02/2025 3:26 PM MDT) Pathologist [facility] TSH 0.196(L) 0.470 - 4.680 mIU/L 03/02/2025 4:36 PM MDT [facility] Blood BLOOD SPECIMEN / Unknown Venipuncture / Unknown 03/02/2025 3:26 PM MDT 03/02/2025 3:27 PM MDT Narrative [facility] - 03/02/2025 4:36 PM MDT This test can be affected by high dose biotin supplements. It is recommended that patients abstain from the use of Biotin-containing medicinals for 24 hours prior to specimen collection if interference is or may be suspected. Balaji Robles NP LAB BLOOD ORDERABLES Final Resul t Performing Organization Address [facility] Co de Phone Number [facility] [address], [place] [address], [facility] [phone] * T4 Free (Thyroxine Free) (03/02/2025 3:26 PM MDT) Pathologist [facility] T4 Free 1.11 0.78 - 2.19 ng/dL 03/06/2025 9:35 AM MDT [facility] Blood BLOOD SPECIMEN / Unknown Venipuncture / Unknown 03/02/2025 3:26 PM MDT 03/06/2025 8:31 AM MDT Balaji Robles [employer] LAB BLOOD ORDERABLES Final Resul t Performing Organization Address City/[facility]/ZIP Co de Phone Number [facility] [address] [address], [facility] [phone] * (ABNORMAL) Comprehensive Metabolic Panel (03/02/2025 3:26 PM MDT) Pathologist [facility] Sodium Serum/Plasma 133(L) 137 - 145 mmol/L 03/02/2025 4:03 PM [facility] Potassium Serum/Plasma 3.9 3.6 - 5.0 mmol/L 03/02/2025 4:03 PM [facility] Chloride Serum/Plasma 103 98 - 107 mmol/L 03/02/2025 4:03 PM [facility] Carbon Dioxide 20(L) 22 - 30 mmol/L 03/02/2025 4:03 PM [facility] Anion Gap 13.9 9 - 18 mmol/L 03/02/2025 4:03 PM [facility] Osmolality Serum, Calculated 273(L) 280 - 295 mOsm/kg 03/02/2025 4:03 PM [facility] Glucose Serum/Plasma 107(H) 70 - 100 mg/dL 03/02/2025 4:03 PM [facility] Blood Urea Nitrogen 6(L) 8 - 22 mg/dL 03/02/2025 4:03 PM [facility] Creatinine Serum/Plasma 0.50 0.50 - 1.00 mg/dL 03/02/2025 4:03 PM [facility] Estimated GFR 130(H) <=90 mL/min/1. 73 square meters 03/02/2025 4:03 PM [facility] Comment:Beginning November 15, [facility] has adopted the CK-EPI equation for the eGFR on the recommendations of the National Kid[employer]. BUN/Creatinine Ratio 12.0 3.0 - 40.0 03/02/2025 4:03 PM [facility] Calcium Serum/Plasma 9.4 8.4 - 10.5 mg/dL 03/02/2025 4:03 PM [facility] Calcium Adjusted 9.7 8.4 - 10.5 mg/dL 03/02/2025 4:03 PM [facility] Alkaline Phosphatase Total 78 43 - 122 U/L 03/02/2025 4:03 PM [facility] Alanine Aminotransferase 11 0 - 45 U/L 03/02/2025 4:03 PM [facility] Aspartate Aminotransferase 19 5 - 40 U/L 03/02/2025 4:03 PM [facility] Bilirubin Total 0.1 0.0 - 1.5 mg/dL 03/02/2025 4:03 PM MDT [facility] Protein Total Serum/Plasma 6.6 5.5 - 8.0 g/dL 03/02/2025 4:03 PM MDT [facility] Albumin 3.7 3.2 - 5.0 g/dL 03/02/2025 4:03 PM MET [facility] Total Globulin 2.9 2.9 - 4.3 g/dL 03/02/2025 4:03 PM MET [facility] A/G Ratio 1.3 0.7 - 1.5 Ratio 03/02/2025 4:03 PM MDT [facility] Blood BLOOD SPECIMEN / Unknown Venipuncture / Unknown 03/02/2025 3:26 PM MDT 03/02/2025 3:27 PM MDT us Balaji Robles NP LAB BLOOD ORDERABLES Final Resul t [facility] [address] [place], [place] [address] [phone] * QuantiFERON??-TB Gold Plus (Client Incubated) - [facility] (03/02/2025 3:24 PM MDT) Quantiferon Criteria Comment 03/05/2025 1:36 PM MDT [facility] Comment: QuantiFERON-TB Gold Plus is a qualitative indirect test for M tuberculosis infection (including disease) and is intended for use in conjunction with risk assessment, radiography, and other medical and diagnostic evaluations. The QuantiFERON-TB Gold Plus result is determined by subtracting the Nil value from either TB antigen (Ag) value. The Mitogen tube serves as a control for the test. Quantiferon TB1 Antigen Value 0.06 IU/mL 03/05/2025 1:36 PM MDT [facility] Quantiferon TB2 Antigen Value 0.05 IU/mL 03/05/2025 1:36 PM MDT [facility] Quantiferon Nil Value 0.02 IU/mL 03/05/2025 1:36 PM MDT [facility] Quantiferon Mitogen Value >10.00 IU/mL 03/05/2025 1:36 PM MDT [facility] QFT-TB Gold Plus Clt Inc Negative Negative 03/05/2025 1:36 PM MDT [facility] Comment: No response to M tuberculosis antigens detected. Infection with M tuberculosis is unlikely, but high risk individuals should be considered for additional testing (ATS/IDSA/CDC Clinical Practice Guidelines, 2017). The reference range is an Antigen minus Nil result of <0.35 IU/mL. The specimen received for QuantiFERON testing was incubated by the ordering institution. Specific procedures outlined in our Directory of Services and in the package insert for the QuantiFERON Gold (In Tube) test must be followed to enable for proper stimulation of cells for the production of interferon gamma. Chemiluminescence immunoassay methodology Blood BLOOD SPECIMEN / Unknown Venipuncture / Unknown 03/02/2025 3:24 PM MDT 03/02/2025 3:25 PM MDT Narrative [facility] - 03/05/2025 1:36 PM MDT Performed at: [address] [place] [address] [id number] Cost And Sales Record Supervisor: Jose Miguel Mohamud MD, Phone: [phone] us Berry Schroeder MD LAB BLOOD ORDERABLES Kymberly l Result [facility] [address] [place] [address] * General OBGYN Ultrasound (02/25/2025 10:55 AM MDT) Anatomical Region Laterality Modality Pelvis Ultrasound 02/25/2025 10:0 0 AM MDT us Kendra Calles MD [facility] [place] ORDERABLES Final Result * Rapid Plasma Reagin Antibody (02/05/2025 11:25 AM MDT) [facility] RPR Negative Negative 02/05/2025 1:03 PM MDT [facility] Blood BLOOD SPECIMEN / Unknown Venipuncture / Unknown 02/05/2025 11:25 AM MDT 02/05/2025 12:10 PM MDT us Balaji Brown [employer] LAB BLOOD ORDERABLES Final Resul t Performing Organization Address City/[facility] Co de Phone Number [facility] [address], [place] [address], [facility] [phone] * Hepatitis C Virus Antibody (02/05/2025 11:25 AM MDT) Hepatitis C Virus Antibodies Quant 0.00 S/CO 02/05/2025 1:33 PM MDT [facility] Comment:Negative Hepatitis C Virus Antibodies Negative Negative 02/05/2025 1:33 PM MDT [facility] Comment:A negative test resu lt does not exclude the possibility of exposure to or infection with HCV. HCV Antibodies may be undetectable in some stages of the infection and in some clinical conditions. Blood BLOOD SPECIMEN / Unknown Venipuncture / Unknown 02/05/2025 11:25 AM MDT 02/05/2025 12:10 PM MDT Balaji Robles NP LAB BLOOD ORDERABLES Final Resul t Performing Organization Address [facility] Co de Phone Number [facility] [address], [place] [address], [facility] [phone] * Rubella IgG Antibody (02/05/2025 11:25 AM MDT) Rubella IgG Antibody Quantitative 27.10 IU/mL 02/05/2025 1:16 PM MDT [facility] Comment:Positive Rubella IgG Antibody Interp Positive Low Positive, Positive 02/05/2025 1:16 PM MDT [facility] Blood BLOOD SPECIMEN / Unknown Venipuncture / Unknown 02/05/2025 11:25 AM MDT 02/05/2025 12:10 PM MDT Narrative [facility] - 02/05/2025 1:16 PM MDT Reference Range for Rubella: Negative: <=9.99 IU/mL Low Positive: 10.1-14.9 IU/mL Positive: >=15.0 IU/mL A Positive or Low Positive result suggests immunity to Rubella infection. A negative result suggests no immunity to Rubella. Balaji Robles NP LAB BLOOD ORDERABLES Final Resul t Performing Organization Address City/[facility] Co de Phone Number [facility] [address], [place] [address], [facility] [phone] * HIV 1/2 Antibody (02/05/2025 11:25 AM MDT) HIV 1/2 Antibody Quant 0.12 s/c 02/05/2025 1:40 PM MDT [facility] HIV1/2 Antibody Screen Negative Negative 02/05/2025 1:40 PM MDT [facility] Comment:Negative Result: HIV antigen and antibodies are not detected. If early infection is suspected, consider repeat testing in 4-6 weeks. Blood BLOOD SPECIMEN / Unknown Venipuncture / Unknown 02/05/2025 11:25 AM MDT 02/05/2025 12:10 PM MDT us Balaji Robles NP LAB BLOOD ORDERABLES Final Resul t Performing Organization Address [facility] de Phone Number [facility] [address], [place] [address], [facility] [phone] * Hepatitis B Surface Antigen (02/05/2025 11:25 AM MDT) Pathologist [facility] Hepatitis B Surface Antigen Quant 0.07 S/CO 02/05/2025 1:16 PM MDT [facility] Comment:Negative Hepatitis B Surface Antigen Negative Negative 02/05/2025 1:16 PM MDT [facility] Comment:HBsAg results should be used and [...] BLOOD SPECIMEN / Unknown Venipuncture / Unknown 02/05/2025 11:25 AM MDT 02/05/2025 12:10 PM MDT us Balaji Robles NP LAB BLOOD ORDERABLES Final Resul t Performing Organization Address City/[facility] Co de Phone Number [facility] [address] [address] [phone] * Varicella Zoster IgG Antibodies (02/05/2025 11:25 AM MDT) Pathologist [facility] Varicella Zoster IgG Quant 2.56 02/05/2025 1:22 PM MDT [facility] Comment: Result Index Values Negative <1.0 Positive >=1.0 Varicella Zoster IgG Positive Positive 02/05/2025 1:22 PM MDT [facility] Blood BLOOD SPECIMEN / Unknown Venipuncture / Unknown 02/05/2025 11:25 AM MDT 02/05/2025 12:10 PM MDT us Balaji Robles NP LAB BLOOD ORDERABLES Final Resul t Performing Organization Address [facility] Co de Phone Number [facility] [id number] [place] [address] * (ABNORMAL) TSH (02/05/2025 11:25 AM MDT) [facility] TSH 0.409(L) 0.470 - 4.680 mIU/L 02/05/2025 1:16 PM MDT [facility] Blood BLOOD SPECIMEN / Unknown Venipuncture / Unknown 02/05/2025 11:25 AM MDT 02/05/2025 12:10 PM MDT Narrative [facility] - 02/05/2025 1:16 PM MDT This test can be affected by high dose biotin supplements. It is recommended that patients abstain from the use of Biotin-containing medicinals for 24 hours prior to specimen collection if interference is or may be suspected. us Balaji Robles NP LAB BLOOD ORDERABLES Final Resul t Performing Organization Address City/[facility]/ZIP Co de Phone Number [facility] [address] [address], [facility] [phone] * T4 Free (Thyroxine) (02/05/2025 11:25 AM MDT) [facility] T4 Free 1.24 0.78 - 2.19 ng/dL 02/06/2025 9:53 AM MDT [facility] Blood BLOOD SPECIMEN / Unknown Venipuncture / Unknown 02/05/2025 11:25 AM MDT 02/05/2025 12:10 PM MDT us Balaji Robles NP LAB BLOOD ORDERABLES Final Resul t [facility] [address], [place] [address], [facility] [phone] * General OBGYN Ultrasound (01/21/2025 11:44 AM MDT) Anatomical Region Laterality Modality Pelvis Ultrasound 01/21/2025 11:0 6 AM MDT Narrative 01/21/2025 12:23 PM MDT Indication ======== incompetent cervix with cerclage, 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 Number of fetuses: 1 Dating ====== Date Details Gest. age ZANE LMP 10/07/2024 15 w + 1 d 07/14/2025 U/S 01/21/2025 based upon AC, BPD, Femur, HC 15 w + 4 d 07/11/2025 Assigned dating based on the LMP, selected on 11/17/2024 15 w + 1 d 07/14/2025 General Evaluation Cardiac activity present. FHR 144 bpm. movements visualized. Presentation breech. Placenta anterior. Umbilical cord normal insertion, 3 vessel cord. Amniotic fluid Amount of AF: normal amount. Growth Overview Exam date GA BPD (mm) HC (mm) AC (mm) FL (mm) HL (mm) EFW (g) 01/21/2025 15w 1d 30.4 66% 114.1 56% 96.4 74% 18.2 56% 128 Biometry BPD 30.4 mm 15w 4d 66% Hadlock HC 114.1 mm 15w 4d 56% Hadlock AC 96.4 mm 15w 5d 74% [facility] Femur 18.2 mm 15w 3d 56% [facility]lock HC / AC 1.18 27% [facility] Weight Calculation: EFW 128 g EFW (lb,oz) 0 lb 5 oz EFW by Hadlock ([id number]) Extremities / Bony Struc Biometry: FL / BPD 0.60 60% Hadlock FL / HC 0.16 57% Hadlock FL / AC 0.19 38% [facility] Anatomy The following structures appear normal: Face Profile. Abdomen Stomach. Extremities / Skeleton Arms. The following structures could not be adequately visualized: Head / Neck Lateral ventricles. Extremities / Skeleton Legs. Maternal Structures Cervix Cervical length 31.1 mm Impression ========= Cervix 31 mm, closed, cerclage in place. Average ultrasound age 3 days large for dates by ovulation date and 1st ultrasound. 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 Number of fetuses: 1 Dating ====== Date DetailsGest. age ZANE LMP 10/07/2024 15 w + 1 d1 U/S 01/21/2025 based upon AC, BPD, Femur, HC 15 w + 4 d1 Assigned dating based on the LMP, selected on w + 1 d 07/14/2025 General Evaluation Cardiac activity present. FHR 144 bpm. movements visualized. Presentation breech. Placenta anterior. Umbilical cord normal insertion, 3 vessel cord. Amniotic fluid Amount of AF: normal amount. Growth Overview Exam date GA BPD (mm) HC (mm) AC (mm) FL (mm) HL (mm) EFW(g) 01/21/2025 15w 1d 30.4 66% 114.1 56% 96.4 74%18.2 56% 128 Biometry BPD 30.4 mm 15w 4d 66% Hadlock HC 114.1 mm 15w 4d 56% [facility] AC 96.4 mm 15w 5d 74% [facility] Femur 18.2 mm 15w 3d 56% [facility] HC / AC 1.18 27% [facility] Weight Calculation: EFW 128 g EFW (lb,oz) 0 lb 5 oz EFW by Hadlock ([id number]) Extremities / Bony Struc Biometry: FL / BPD 0.60 60% [facility] FL / HC 0.16 57% Hadlock FL / AC 0.19 38% [facility] Anatomy The following structures appear normal: Face Profile. Abdomen Stomach. Extremities / Skeleton Arms. The following structures could not be adequately visualized: Head / Neck Lateral ventricles. Extremities / Skeleton Legs. Maternal Structures Cervix Cervical length 31.1 mm Impression ========= Cervix 31 mm, closed, cerclage in place. Average ultrasound age 3 days large for dates by ovulation date and 1stultrasound. Kendra Calles MD [facility] ORDERABLES Final Result * Hemoglobin A1c (GLYCO) (11/05/2024 5:51 PM [facility]) [facility] Signature A1C Glycohemoglobin 5.8 4.0 - 6.0 % 11/05/2024 6:10 PM [facility] Blood BLOOD SPECIMEN / Unknown Venipuncture / Unknown 11/05/2024 5:51 PM [facility] 11/05/2024 5:51 PM [facility] Narrative [facility] - 11/05/2024 6:10 PM [facility] Glycohemoglobin test measures Hemoglobin A1C. Reference Interval for d%A1c %A1c (NGSP) Interpretation <5.0 Absence of Diabetes 5.1 - 5.6 Indeterminate 5.7 - 6.4 Indicates Prediabetes >6.5 Indicates Presence of Diabetes Nidia Delgado MD LAB BLOOD ORDERABLES Kymberly l Result [facility] [address] [place] [address], [facility] [phone] * LAB USE ONLY - FIELD REPORTER Cytology (09/22/2024 2:39 PM [facility]) FIELD REPORTER Diagnosis Negative For Intraepithelial Lesion Or Malignancy Negative For Intraepithelial Lesion Or Malignancy 7:25 AM [facility] at 0725 [facility] FIELD REPORTER Adequacy Comments Satisfactory for Cytologic Evaluation. Endocervical / Metaplastic Cells Present 7:25 AM [facility] FIELD REPORTER Comments English Drawer Review was Performed at [facility], [place], [address] [place] [address]. Per Clinician's Request, HPV Testing Will Be Done and Reported Separately 7:25 AM [facility] Clinical Information screening 7:25 AM [facility] Pap Smear Disclaimer The Pap test is a screening test designed to aid in the detection of premalignant and malignant conditions of the uterine cervix. Because of the subjective nature of the test, it is susceptible to a certain irreducible error rate and both false positive and false negative reports do occur. Thus, the results of the Pap test should always be correlated with the clinical situation, and additional test performed as indicated. 7:25 AM [facility] Cervical CERVIX UTERI STRUCTURE / Unknown 09/22/2024 2:39 PM [facility] 09/23/2024 7:48 AM [facility] Nidia Delgado MD PATHOLOGY/CYTOLOGY ORDERA BLES Final Result [facility] [address] [address], [facility] [phone] from Last 3 Months or Most Recently Relevant to [place] [address] [facility] P[facility] Care Teams Systems Integration Analyst Relationship Specialty Start Date End Date Harleen Zepeda FNP [facility] [place] [id number] PCP - General Nurse Practitioner 06/23/24
--- OUTSIDE RECORDS SUMMARY | 2025-04-17 03:15 | XMS_ITS | Encounter Summary ---
Author Organization [facility] Address [address] [address] Care Team Providers Care Game Breeding Farm Manager Name Role Phone Harleen Zepeda JULIETH Primary Care Provider +1- [phone] Encounter Details Date Type Department Care Team (Late st Contact Info) Description 01/12/2025 [facility] [address] [place] [address] Balaji Robles NP [address] [place] [address] Encounter for screening of mother (HC CODE) (Primary Dx) Social History Tobacco Use Types Packs/Day Years Used Date Smoking Tobacco: Never Smokeless Tobacco: Never Alcohol Use Standard Drinks/Week Comments Not Currently 0 (1 standard drink = 0.6 oz pur e alcohol) ocassional Madison Depression Scale Answer Date Recorded Madison Depression Scale Total 9 01/02/2025 The thought of harming myself has occurred to me . 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 on file Not on file Not on file documented as of this encounter Plan of Treatment Upcoming Encounters Date Type Department Care Team (Late st Contact Info) Description 04/29/2025 11:15 AM MDT ROUTINE [address] [place] [address] Kendra Calles MD [address] [place] [address] [address] [place] [address] 06/29/2025 11:00 AM MDT Initial Visit [address] [place] [address] Kendra Calles MD [address] [place] [address] [address] [place] [address] Stacy Grant documented as of this encounter Procedures Procedure Name Priority Date/Time Associated Diagnosis Comments CELL FREE DNA (CFF DNA) Routine 01/06/2025 7:48 AM MDT documented in this encounter Results * (ABNORMAL) TSH (03/13/2025 1:18 PM MDT) TSH 0.196(L) 0.470 - 4.680 mIU/L 03/13/2025 2:34 PM MDT [facility] Blood BLOOD SPECIMEN / Unknown Venipuncture / Unknown 03/13/2025 1:18 PM MDT 03/13/2025 1:19 PM MDT Narrative [facility] - 03/13/2025 2:34 PM MDT This test can be affected by high dose biotin supplements. It is recommended that patients abstain from the use of Biotin-containing medicinals for 24 hours prior to specimen collection if interference is or may be suspected. us Balaji Robles NP LAB BLOOD ORDERABLES Final Resul t [facility] [address] [address], [facility] [phone] * CELL FREE DNA (CFF DNA) (01/06/2025 7:48 AM MDT) Balaji Robles NP THIRD LIBERTARIAN LAB ORDERABLES Final Result [facility] documented in this encounter Visit Diagnoses Diagnosis Encounter for screening of mother (HC CODE)- Primary Unspecified screening documented in this encounter Additional Health Concerns Infection Onset Date Last Indicated Resolved Time R/O COVID-19 Comment:Infection status was added automatically at diagnosis entry (BPA #[id number]) 02/05/2025 02/05/2025 02/15/2025 7:29 PM M DT documented as of this encounter Care Teams Game Breeding Farm Manager Relationship Specialty Start Date End Date Harleen Zepeda FNP [facility] [place] [address] PCP - General Nurse Practitioner 06/23/24 documented as of this encounter
--- OUTSIDE RECORDS SUMMARY | 2025-04-17 03:15 | XMS_ITS | Encounter Summary ---
Author Organization [facility] Address [address] [address] Care Team Providers Care Transportation Refrigeration Technician Name Role Phone Harleen Zepeda LINE ASSIGNER Primary Care Provider +1- [phone] Reason for Visit * Reason Comments Procedure Question Encounter Details Date Type Department Care Team (Late st Contact Info) Description 01/15/2025 Telephone [facility] [address] [facility] [address] [place] [address] Asked, Nopcp . 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 01/02/25 documented in this encounter Plan of Treatment Upcoming Encounters Date Type Department Care Team (Late st Contact Info) Description 04/29/2025 11:15 AM MDT ROUTINE [address] [place] [address] Kendra Calles MD [address] [place] [address] [address] [place] [address] 06/29/2025 11:00 AM MDT Initial Visit [address] [place] [address] Kendra Calles MD [address] [place] [address] [address] [place] [address] Stacy Grant documented as of this encounter Visit Diagnoses Not on filedocumented in this encounter Additional Health Concerns Infection Onset Date Last Indicated Resolved Time R/O COVID-19 Comment:Infection status 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
--- OUTSIDE RECORDS SUMMARY | 2025-04-17 03:16 | XMS_ITS | Encounter Summary ---
Author Organization [facility] Address [address] [address] Care Team Providers Care Almond Cutting Machine Tender Name Role Phone Harleen Zepeda JULIETH Primary Care Provider +1- [phone] Encounter Details Date Type Department Care Team (Late st Contact Info) Description 03/02/2025 Lab Requisition [facility] [address] [place] [address] Berry Schroeder MD [address] [place] [address] Encounter for other specified special examinations; Encounter for other specified special examinations Social History Tobacco Use Types Packs/Day Years Used Date Smoking Tobacco: Never Smokeless Tobacco: Never Alcohol Use Standard Drinks/Week Comments Not Currently 0 (1 standard drink = 0.6 oz pur e alcohol) ocassional Carpio Depression Scale Answer Date Recorded Carpio Depression Scale Total 9 01/02/2025 The thought [...] 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 Not on file Not on file documented as of this encounter Plan of Treatment Upcoming Encounters Date Type Department Care Team (Late st Contact Info) Description 04/29/2025 11:15 AM MDT ROUTINE [address] [place] [address] Kendra Calles MD [address] [place] [address] [address] [place], [place] [address] 06/29/2025 11:00 AM MDT Initial Visit [address] [facility] [place] [address] Kendra Calles MD [address] [place] [address] [place] [address] Stacy Grant documented as of this encounter Procedures Procedure Name Priority Date/Time Associated Diagnosis Comments QFT-TB PLUS (CLIENT INCUBATED) Routine 03/02/2025 3:24 PM MDT Encounter for other specified special examinations Encounter for other specified special examinations documented in this encounter Results * QuantiFERON??-TB Gold Plus (Client Incubated) - [facility] (03/02/2025 3:24 PM MDT) [facility] Quantiferon Criteria Comment 03/05/2025 1:36 PM MDT [...] - 03/05/2025 1:36 PM MDT Performed at: 01 - [facility] [address] [id number] Private Sector Executive: Jose Miguel Mohamud MD, Phone: [phone] us Berry Schroeder MD LAB BLOOD ORDERABLES Kymberly l Result [facility] [address] [place] [address] documented in this encounter Visit Diagnoses Diagnosis Encounter for other specified special examinations documented in this encounter Care Teams Almond Cutting Machine Tender Relationship Specialty Start Date End Date Harleen Zepeda FNP [address] [place] [address] [address] [place] [address] PCP - General Nurse Practitioner 06/23/24 documented as of this encounter
--- OUTSIDE RECORDS SUMMARY | 2025-04-17 03:16 | XMS_ITS | Encounter Summary ---
Author Organization [facility] Address [address] [address] Care Team Providers Care Factory Maintenance Technician Name Role Phone Harleen Zepeda Primary Care Provider +1- [phone] Reason for Visit * Reason Onset Date Comments Medication Refill 07/11/2024 Encounter Details Date Type Department Care Team (Late st Contact Info) Description 07/11/2024 Telephone [facility] [address] [place] [address] Harleen Zepeda FNP [address] [place] [address] Social History Tobacco Use Types Packs/Day Years Used Date Smoking Tobacco: Never Smokeless Tobacco: Never Comments Unknown Sex and Gender Information Value Date Recorded Sex Assigned at Female 09/05/2024 8:00 PM [facility] Legal Sex Female 1:05 PM [facility] Gender Identity Female 09/05/2024 8:00 PM [facility] Sexual Orientation Straight 09/05/2024 8: 00 PM MST documented as of this encounter Progress Notes * Henry Zaman LPN - 07/11/2024 3:28 PM MDT Inhaler sent * Lissett Talley - 07/11/2024 3:06 PM MDT Patient is calling in regards to a medication refill on Albuterol inhaler -- Please send script to Jesse -- Please call patient back at [phone] Thank You documented in this encounter Plan of Treatment Upcoming Encounters Date Type Department Care Team (Late st Contact Info) Description 04/29/2025 11:15 AM MDT ROUTINE [address] [facility] [address] [place] [address] Kendra Calles MD [address] [place] [address] [address] [place] [address] 06/29/2025 11:00 AM MDT Initial Visit [address] [facility] [address] [place] [address] Kendra Calles MD [address] [place] [address] [facility] [address] [place] [address] Stacy Grant documented as of this encounter Visit Diagnoses Not on filedocumented in this encounter Additional Health Concerns Infection Onset Date Last Indicated Resolved Time R/O COVID-19 Comment:Infection status was added automatically at diagnosis entry (BPA #[id number]) 02/05/2025 02/05/2025 02/15/2025 7:29 PM M DT documented as of this encounter Care Teams Factory Maintenance Technician Relationship Specialty Start Date End Date Harleen Zepeda FNP [address] [place] [address] [address] [place] [address] PCP - General Nurse Practitioner 06/23/24 documented as of this encounter
--- OUTSIDE RECORDS SUMMARY | 2025-04-17 03:16 | XMS_ITS | Encounter Summary ---
Author Organization [facility] Address [address] [address] Care Team Providers Care Ecommerce Project Manager Name Role Phone Harleen Zepeda Primary Care Provider +1- [phone] Reason for Visit * Reason Onset Date Comments Medication Refill 08/07/2024 Adderral refil l Encounter Details Date Type Department Care Team (Late st Contact Info) Description 08/07/2024 Telephone [facility]Central[facility] Scheduling [address] [place] [address] Harleen Zepeda FNP [address] [place] [address] Social History Tobacco Use Types [...] Progress Notes * Henry Zaman LPN - 08/07/2024 1:35 PM MST Left message for patient medication was sent * Henry Zaman LPN - 08/07/2024 1:32 PM MST I will let her know * Kim Thorne - 08/07/2024 10:54 AM MST Patient stated that she needs a Refill on adderral sent to [facility] back [phone] documented in this encounter Plan of Treatment Upcoming Encounters Date Type Department Care Team (Late st Contact Info) Description 04/29/2025 11:15 AM MDT ROUTINE [place] [address] [facility] [address] [place] [address] Kendra Calles MD [address] [place] [address] B [facility] [address] [place] [address] 06/29/2025 11:00 AM MDT Initial Visit [address] [facility] [address] [place] [address] Kendra Calles MD [address] [place] [address] [facility] [address] [place] [address] Stacy Grant documented as of this encounter Visit Diagnoses Not on filedocumented in this encounter Additional Health Concerns Infection Onset Date Last Indicated Resolved Time R/O COVID-19 Comment:Infection status was added automatically at diagnosis entry (BPA #[id number]) 02/05/2025 02/05/2025 02/15/2025 7:29 PM M DT documented as of this encounter Care Teams Ecommerce Project Manager Relationship Specialty Start Date End Date Katelyn, JULIETH Culp [address] [place] [address] [address] [place] [address] PCP - General Nurse Practitioner 06/23/24 documented as of this encounter
--- OUTSIDE RECORDS SUMMARY | 2025-04-17 03:16 | XMS_ITS | Encounter Summary ---
Author Organization [facility] Address [address] [address] Care Team Providers Care Stationary Engineer Name Role Phone Harleen Zepeda JULIETH Primary Care Provider +1- [phone] Encounter Details Date Type Department Care Team (Late st Contact Info) Description 12/07/2024 Telephone [facility] [address] [facility] [address] [place] [address] Millicent Young NP [address] [facility] [address] [place] [address] Social History Tobacco Use Types Packs/Day Years Used Date Smoking Tobacco: Never Smokeless Tobacco: Never Alcohol Use Standard Drinks/Week Comments Not Currently 0 (1 standard drink = 0.6 oz pur e alcohol) ocassional Estimated Date of Delivery Comme nts Yes 07/14/2025 Based on last me nstrual period of 10/07/2024 (Within Days) Sex and Gender Information Value Date Recorded Sex Assigned at Female 09/05/2024 8:00 PM [facility] Legal Sex Female 1:05 PM [facility] Gender Identity Female 09/05/2024 8:00 PM MST Sexual Orientation Straight 09/05/2024 8: 00 PM [facility] 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 She ran out of her nausea medication and has another med but wanted to know if it was safe to take it. Connected her with the on-call. documented in this encounter Plan of Treatment Upcoming Encounters Date Type Department Care Team (Late st Contact Info) Description 04/29/2025 11:15 AM MDT ROUTINE [address] [facility] [address] [place] [address] Kendra Calles MD [address] [place] [address] B [facility] [address] [place] [address] 06/29/2025 11:00 AM MDT Initial Visit [address] [facility] [address] [place] [address] Kendra Calles MD [address] [place] [address] [address] [place] [address] Stacy Grant documented as of this encounter Visit Diagnoses Not on filedocumented in this encounter Additional Health Concerns Infection Onset Date Last Indicated Resolved Time R/O COVID-19 Comment:Infection status was added automatically at diagnosis entry (BPA #[id number]) 02/05/2025 02/05/2025 02/15/2025 7:29 PM M DT documented as of this encounter Care Teams Stationary Engineer Relationship Specialty Start Date End Date Harleen Zepeda FNP [address] [place] [address] [address] [place] [address] PCP - General Nurse Practitioner 06/23/24 documented as of this encounter
--- OUTSIDE RECORDS SUMMARY | 2025-04-17 03:16 | XMS_ITS | Encounter Summary ---
Author Organization [facility] Address [address] [address] Care Team Providers Care Primary Health Care Nurse Name Role Phone Harleen Zepeda JULIETH Primary Care Provider +1- [phone] Reason for Visit * Reason Comments Results Question Encounter Details Date Type Department Care Team (Late st Contact Info) Description 02/06/2025 Telephone [facility] [address] [place] [address] Balaji Robles NP [address] [place] [address] Social History Tobacco Use Types Packs/Day Years Used Date Smoking Tobacco: Never Smokeless Tobacco: Never Alcohol Use Standard Drinks/Week Comments Not Currently 0 (1 standard drink = 0.6 oz pur e alcohol) ocassional Gary Depression Scale Answer Date Recorded Gary Depression Scale Total 9 01/02/2025 The thought [...] 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 Per Balaji, ,we will have her repeat her TSH with her next ob visit in 4 weeks. Pt voices understanding. Lab ordered * Claudine Pruitt - 02/06/2025 1:35 PM MDT Patient states that she is wanting to speak with a nurse about her lab results. 02/05/25 AB [phone] documented in this encounter Plan of Treatment Upcoming Encounters Date Type Department Care Team (Late st Contact Info) Description 04/29/2025 11:15 AM MDT ROUTINE [address] [facility] [address] [place] [address] Kendra Calles MD [address] [place] [address] B [facility] [address] [place] [address] 06/29/2025 11:00 AM MDT Initial Visit [address] [facility] [address] [place] [address] Kendra Calles MD [address] [place] [address] B [facility] [address] [place] [address] Stacy Grant documented as of this encounter Visit Diagnoses Not on filedocumented in this encounter Additional Health Concerns Infection Onset Date Last Indicated Resolved Time R/O COVID-19 Comment:Infection status was added automatically at diagnosis entry (BPA #[id number]) 02/05/2025 02/05/2025 02/15/2025 7:29 PM M DT documented as of this encounter Care Teams Primary Health Care Nurse Relationship Specialty Start Date End Date Harleen Zepeda FNP [address] [place] [address] [address] [place] [address] PCP - General Nurse Practitioner 06/23/24 documented as of this encounter
--- OUTSIDE RECORDS SUMMARY | 2025-04-17 03:16 | XMS_ITS | Encounter Summary ---
Author Organization [facility] Address [address] [address] Care Team Providers Care National Van Truck Driver Name Role Phone Harleen Zepeda CARE TRANSITION MGR Primary Care Provider +1- [phone] Reason for Visit * Reason Comments Contraception Encounter Details Date Type Department Care Team (Late st Contact Info) Description 09/15/2024 Telephone [facility] [address] [facility] [address] [place] [address] Asked, Killiancp . Social History Tobacco Use Types Packs/Day Years Used Date Smoking Tobacco: Never Smokeless Tobacco: Never Comments Unknown Sex and Gender Information Value Date Recorded Sex Assigned at Female 09/05/2024 8:00 PM MST Legal Sex Female 1:05 PM MST Gender Identity Female 09/05/2024 8:00 PM MST Sexual Orientation Straight 09/05/2024 8: 00 PM MST documented as of this encounter Progress Notes * Poppy Méndez RN - 09/15/2024 2:47 PM MST Pt would like to get her annual exam and have her Nexplanon removed. She does not want any other form of BC, states that she is thinking about another baby. She would like to see Dr Delgado as she delivered her last 2 babies. Apt scheduled for Sep 22 at 1:30 with VERÓNICA. * Claudine Pruitt - 09/15/2024 2:01 PM MST Patient states that she is wanting her nexplanon implant removed, and get a pap smear. 10/17/21 documented in this encounter Plan of Treatment Upcoming Encounters Date Type Department Care Team (Late st Contact Info) Description 04/29/2025 11:15 AM MDT ROUTINE [address] [facility] [address] [place] [address] Kendra Calles MD [address] [place] [address] B [facility] [address] [place] [address] 06/29/2025 11:00 AM MDT Initial Visit [address] [facility] [address] [place] [address] Kendra Calles MD [address] [place] [address] [address] [place] [address] Stacy Grant documented as of this encounter Visit Diagnoses Not on filedocumented in this encounter Additional Health Concerns Infection Onset Date Last Indicated Resolved Time R/O COVID-19 Comment:Infection status was added automatically at diagnosis entry (BPA #[id number]) 02/05/2025 02/05/2025 02/15/2025 7:29 PM M DT documented as of this encounter Care Teams National Van Truck Driver Relationship Specialty Start Date End Date Harleen Zepeda FNP [address] [place] [address] [address] [place] [address] PCP - General Nurse Practitioner 06/23/24 documented as of this encounter
--- OUTSIDE RECORDS SUMMARY | 2025-04-17 03:16 | XMS_ITS | Encounter Summary ---
Author Organization [facility] Address [address] [address] Care Team Providers Care Mural Painter Name Role Phone Harleen Zepeda VINYL DIPPER Primary Care Provider [phone]- [phone] Reason for Visit * Reason Comments Other Encounter Details Date Type Department Care Team (Late st Contact Info) Description 12/11/2024 Telephone [facility] [facility] [address] [place] [address] Nidia Delgado MD [address] [place] [address] [address] [place] [address] Social History Tobacco Use Types [...] 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 I also asked her to e-mail me a copy of her ins card. sg * Claudine Pruitt - 12/11/2024 1:09 PM MDT Patient states that she is a high risk and wants to schedule an appointment in December with[facility] to have cervical cerclage placed. Patient is currently 9 weeks . 11/26/24 KJ 12/24/24 -NOB [phone] documented in this encounter Plan of Treatment Upcoming Encounters Date Type Department Care Team (Late st Contact Info) Description 04/29/2025 11:15 AM MDT ROUTINE [address] [place] [address] Kendra Calles MD [address] [place] [address] [address] [facility] [address] [place] [address] 06/29/2025 11:00 AM MDT Initial Visit [address] [facility] [address] [place] [address] Kendra Calles MD [address] [place] [address] [address] [place] [address] Stacy Grant documented as of this encounter Visit Diagnoses Not on filedocumented in this encounter Additional Health Concerns Infection Onset Date Last Indicated Resolved Time R/O COVID-19 Comment:Infection status was added automatically at diagnosis entry (BPA #[id number]) 02/05/2025 02/05/2025 02/15/2025 7:29 PM M DT documented as of this encounter Care Teams Mural Painter Relationship Specialty Start Date End Date Harleen Zepeda FNP [address] [place] [address] [address] [place], [place] [id number] PCP - General Nurse Practitioner 06/23/24 documented as of this encounter
--- OUTSIDE RECORDS SUMMARY | 2025-04-17 03:16 | XMS_ITS | Encounter Summary ---
Author Organization [facility] Address [address] [address] Care Team Providers Care Publicity Director Name Role Phone Harleen Zepeda JULIETH Primary Care Provider +1- [phone] Encounter Details Date Type Department Care Team (Late st Contact Info) Description 04/15/2025 Results Follow-Up [facility] [address] [facility] [address] [place] [address] Balaji Robles NP [address] [place] [address] Social History Tobacco Use Types Packs/Day Years Used Date Smoking Tobacco: Never Smokeless Tobacco: Never Alcohol Use Standard Drinks/Week Comments Not Currently 0 (1 standard drink = 0.6 oz pur e alcohol) ocassional Homer Depression Scale Answer Date Recorded Homer Depression Scale Total 21 04/13/2025 The thought [...] 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 on file Not on file documented as of this encounter Plan of Treatment Upcoming Encounters Date Type Department Care Team (Late st Contact Info) Description 04/29/2025 11:15 AM MDT ROUTINE [address] [place] [address] Kendra Calles MD [address] [place] [address] [address] [place] [address] 06/29/2025 11:00 AM MDT Initial Visit [address] [place] [address] Kendra Calles MD [address] [place] [address] [address] [place] [address] Stacy Grant documented as of this encounter Visit Diagnoses Not on filedocumented in this encounter Care Teams Publicity Director Relationship Specialty Start Date End Date Katelyn, JULIETH Culp [address] [place] [address] [address] [place], [place] [address] PCP - General Nurse Practitioner 06/23/24 documented as of this encounter
--- OUTSIDE RECORDS SUMMARY | 2025-04-17 03:16 | XMS_ITS | Encounter Summary ---
Author Organization [facility] Address [address] [address] Care Team Providers Care Sheet Metal Roofer Name Role Phone Harleen Zepeda JULIETH Primary Care Provider [phone]- [phone] Reason for Visit * Reason Comments Problem Encounter Details Date Type Department Care Team (Late st Contact Info) Description 04/13/2025 Telephone [facility] [address] [place] [address] Balaji Robles NP [address] [place] [address] Social History Tobacco Use Types Packs/Day Years Used Date Smoking Tobacco: Never Smokeless Tobacco: Never Alcohol Use Standard Drinks/Week Comments Not Currently 0 (1 standard drink = 0.6 oz pur e alcohol) ocassional Meridian Depression Scale Answer Date Recorded Meridian Depression Scale Total 21 04/13/2025 The thought [...] 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 Pt denies SAPP's, no blurry vision, no vag. Bldg, and no cramping. Baby is moving and ankle swelling goes away with elevation. Pt states she is hydrated and staying out of the heat. Pt has had one iron infusion so far. Pt is wanting to see Neville today. Per Neville pt will come in this afternoon. * Claudine Pruitt - 04/13/2025 8:38 AM MDT Patient states that she has been feeling very faint and has had to call out of work. Wants to come in to see Balaji. 04/01/25 documented in this encounter Plan of Treatment Upcoming Encounters Date Type Department Care Team (Late st Contact Info) Description 04/29/2025 11:15 AM MDT ROUTINE [address] [facility] [address] [place] [address] Kendra Calles MD [address] [place] [address] B [facility] [address] [place] [address] 06/29/2025 11:00 AM MDT Initial Visit [address] [place] [address] Kendra Calles MD [address] [place] [address] [address] [place] [address] Stcay Grant documented as of this encounter Visit Diagnoses Not on filedocumented in this encounter Care Teams Sheet Metal Roofer Relationship Specialty Start Date End Date Harleen Zepeda FNP NPI: [id number] [place] [address] [address] [place] [address] PCP - General Nurse Practitioner 06/23/24 documented as of this encounter
== END 2025-04-16 06:35 | disposition home or self-care (01) ==
LOC: OBGYN 06:29 → OPOB 15:11 → OBGYN 04-17 05:46
PROVIDERS: Visit Provider Family Medicine
DX: O26.899 Other specified pregnancy related conditions, unspecified trimester (principal); Z3A.00 Weeks of gestation of pregnancy not specified; R10.9 Unspecified abdominal pain; R11.10 Vomiting, unspecified
CPT/HCPCS: 96372; 99211; J3105; J7120

== ENCOUNTER 2025-04-16 10:50 | Outpatient (CLI) | payer OTHER, SELFPAY ==
[2025-04-16] VITALS (7 sets, daily range): BP systolic 116–125; BP diastolic 63–75; PULSE 65–74
--- NOTE | 2025-04-16 12:15 | US_ITS ---
WS: [id number] Limited obstetrical ultrasound. HISTORY: Check cerclage. COMPARISON: None. Only a few images have been submitted. No prior studies for comparison. Single fetus in breech position. Heart rate at 136 bpm. Limited evaluation of the cervix. The cervix appears shortened but intact. The cerclage suture is noted. There is no insufficiency distal to the cerclage suture. Amniotic fluid visually is decreased. Several pockets of fluid are identified with the largest measuring 4.8 cm. US/US OB limited [id number] IMPRESSION: 1. Cerclage suture appears intact. No cervical insufficiency distal to the cerc charlie suture. 2. Normal cardiac activity. 3. Amniotic fluid is not measured but there is several pockets of fluid which a re sufficient. Typically at this gestational age more amniotic fluid is noted. No prior studies for comparison.
[2025-04-16 14:26] LABS: Glucose Urine UA Negative (Normal); Nitrate Urine Negative (Negative); Specific Gravity, Urine 1.010 (1.005-1.030)
[2025-04-16] MEDS: NIFEdipine ER (24 hr) 30 mg Tablet PO (14:49)
== END 2025-04-16 17:15 | disposition home or self-care (01) ==
LOC: OPOB 10:55 → OBGYN 10:55
PROVIDERS: Visit Provider Obstetrics & Gynecology
DX: O26.899 Other specified pregnancy related conditions, unspecified trimester (principal); Z3A.00 Weeks of gestation of pregnancy not specified; R10.9 Unspecified abdominal pain
CPT/HCPCS: 76815; 81001; 99211; J9999